=== PATIENT | male | born 1945 ===

== ENCOUNTER 2021-09-01 06:51 | Day surgery (SDC) | payer OTHER ==
[~2021-09-01] VITALS: Ht 172.7 cm; Wt 91.2 kg
[2021-09-01] MEDS ORDERED: Lisinopril-Hct1 EAC4 PO (07:20)
[2021-09-01] MEDS ORDERED: Aspir 8181 MG PO (07:20)
--- NOTE | 2021-09-01 07:25 | NUR ---
09/01/21 0725 Neena Hernandez IN LEFT EYE AT 0720 AND DAYANARA AT 0722
== END 2021-09-01 09:37 | disposition home or self-care (01) ==
LOC: ORSCSDS 06:51
PROVIDERS: Counselor Professional
PROC: 08RK3JZ Replacement of Left Lens with Synthetic Substitute, Percutaneous Approach (ICD-10-PCS; principal; 2021-09-01 08:15)
DX: H25.12 Age-related nuclear cataract, left eye (principal); I10 Essential (primary) hypertension; E66.9 Obesity, unspecified; Z68.30 Body mass index [BMI] 30.0-30.9, adult; Z79.82 Long term (current) use of aspirin; Z79.899 Other long term (current) drug therapy
CPT/HCPCS: J2001; J2250; J3010; J7040; V2632